=== PATIENT | male | born 1950 | race Caucasian/White ===

== ENCOUNTER 2023-10-07 06:18 | Day surgery (SDC) | payer MEDICARE, OTHER ==
[~2023-10-07 06:18] MED LIST: Sodium Chloride 0.9% 10 ML Syringe FLUSH PRN
[2023-10-07] MEDS ORDERED: fentaNYL 100 MCG/2 ML SDV IV ONE (06:19)
[2023-10-07] MEDS ORDERED: Ondansetron 4 MG/2 ML SDV IVPUSH ONE (06:19)
[2023-10-07] MEDS ORDERED: Midazolam 1 MG/ML 2 ML SDV IV ONE (06:19)
[2023-10-07] MEDS ORDERED: Propofol 200 MG/20 ML SDV IV ONE (06:19)
[2023-10-07] MEDS ORDERED: Glycopyrrolate 0.2 MG/ML 5 ML MDV IV ONE (06:19)
[2023-10-07] MEDS: Lidocaine 1% with EPINEPHrine 1:100,000 20 ML MDV INJECT ONE (07:06)
[2023-10-07] MEDS: Bupivacaine 0.5% 50 ML MDV INJECT ONE (07:07)
[2023-10-07] MEDS: Lactated Ringers 1,000 ML IV SCH (07:35)
[2023-10-07] MEDS: ceFAZolin 2 GM Vial IVPUSH ONE (07:36)
[2023-10-07 11:33] VITALS: BP 160/88; PULSE 50
== END 2023-10-07 11:31 | disposition home or self-care (01) ==
LOC: FB.SDS 06:18
PROVIDERS: ATTEND Surgery
DX: K40.20 Bilateral inguinal hernia, without obstruction or gangrene, not specified as recurrent (principal); I10 Essential (primary) hypertension; I25.2 Old myocardial infarction; I48.20 Chronic atrial fibrillation, unspecified; I25.10 Atherosclerotic heart disease of native coronary artery without angina pectoris; Z86.73 Personal history of transient ischemic attack (TIA), and cerebral infarction without residual deficits; Z79.01 Long term (current) use of anticoagulants; Z79.899 Other long term (current) drug therapy; Z88.8 Allergy status to other drugs, medicaments and biological substances
CPT/HCPCS: 00860; 88304; 99100; C1781; J0690; J2250; J2405; J2704; J3010; J3490; J7120